=== PATIENT | female | born 1975 | race Caucasian/White ===

== ENCOUNTER 2020-05-21 00:18 | Emergency (ER) | payer MEDICAID ==
[~2020-05-21] VITALS: Ht 160 cm; Wt 61.2 kg
[2020-05-21] MEDS ORDERED: GUAIFENESIN/CODEINE 200-20MG/10ML UDC PO ONE (02:00)
[2020-05-21 03:10] VITALS: BP 135/81
== END 2020-05-21 03:15 | disposition home or self-care (01) ==
LOC: ER 00:18
DX: U07.1 COVID-19 (principal)
CPT/HCPCS: 99283